=== PATIENT | female | born 1990 | race Caucasian/White ===

== ENCOUNTER → 2024-06-27 07:26 | Outpatient (CLI) | payer OTHER, SELFPAY ==
--- NOTE | 2024-06-27 07:27 | DI.US.S_ITS ---
PROCEDURE: US PELVIC COMPLETE INDICATIONS: BLOATING, DUB X 7 MOS TECHNIQUE: Real-time scanning was performed of the pelvic organs, with image documentation. Additional endovaginal scanning was necessary due to incomplete visualization of the adnexal and endometrial structures by transabdominal scanning. COMPARISON: None. FINDINGS: Uterus: Uterus is anteverted and normal in size at 4.4 x 6.3 x 9.5 cm. The myometrium is homogeneous. The endometrium measures 10.4 mm combined thickness. There is mild heterogeneity of the endometrial lining. Ovaries: The right ovary measures 2.5 x 1.1 x 1.9 cm, with a calculated ovarian volume of 2.7 cc. The left ovary measures 6.0 x 3.3 x 5.0 cm, with a calculated ovarian volume of 49.5 cc. This ovary is enlarged by presence of a 4.8 x 3.1 x 3.5 cm simple cyst and a complex cyst measuring 1.9 x 1.4 x 0.9 cm containing low level internal echoes. The ovaries otherwise have a normal sonographic appearance. Less than 12 follicles can be seen in each ovary. No adnexal masses are seen. Other: No pathologic free abdominal or pelvic fluid. IMPRESSION: Mild heterogeneity of the endometrial lining which is normal in thickness considering young age. Asymmetric size of the left ovary predominantly due to a large simple cyst measuring up to 4.8 cm. There is also a much smaller mildly complex cyst containing low level internal echoes at the left ovary which measures only 1.9 cm in maximal dimension. Follow-up pelvic ultrasound in 6-8 weeks is recommended to assess for resolution of these findings.. We strive to produce accurate, complete, and clear reports of imaging services. To assist us in improving patient care, this report was composed using standard report templates and voice recognition software. Therefore, it may contain abnormal punctuation, insertions and/or omissions. Occasional wrong-word or sound-alike substitutions may occur. Though we review the report and make efforts to correct it, we do recommend that the report be read carefully in proper context to recognize any text inaccuracies. Dictated by: Tavares Grover M.D. on 06/27/2024 at 11:32 Approved by: Tavares Grover M.D. on 06/27/2024 at 11:36
[2024-06-27 17:59] LABS: Follicle Stimulating Hormone 2.81 mIU/mL
[2024-06-30 21:06] LABS: Estrogen 229 pg/mL (.)
[2024-07-08 06:40] LABS: % Free Progesterone 2.5 % (.); Free Progesterone 28 ng/dL (.); Progesterone, Serum 1110 ng/dL (.)
== END ==
PROVIDERS: PCP Family Medicine; Referring Provider Family Medicine; Visit Provider Family Medicine
DX: N92.6 Irregular menstruation, unspecified (principal); N83.292 Other ovarian cyst, left side
CPT/HCPCS: 36415; 76830; 76856; 82672; 83001; 83002; 84144; 84999

== ENCOUNTER → 2024-06-29 12:15 | Outpatient (CLI) | payer OTHER, SELFPAY ==
[2024-06-29 13:38] LABS: Influenza A - CEPHEID Flu A NEGATIVE (NEGATIVE); Influenza B - CEPHEID Flu B NEGATIVE (NEGATIVE); Respiratory Syncytial Virus Negative (Negative)
[2024-06-29 13:43] LABS: COVID-19 CEPHEID 4-PLEX PCR Negative (Negative)
== END ==
PROVIDERS: PCP Family Medicine; Visit Provider Registered Nurse
DX: R42 Dizziness and giddiness (principal)
CPT/HCPCS: 0241U

== ENCOUNTER → 2024-07-05 15:37 | Outpatient (CLI) | payer OTHER, SELFPAY ==
[2024-07-05 17:35] LABS: Hemoglobin A1C% w Est Avg Glu 4.6 % (4.0-6.0)
[2024-07-05 18:01] LABS: Free T4, Direct Thyroxine 1.16 ng/dL (0.78-2.19)
[2024-07-05 18:15] LABS: Cancer Antigen 125 13.8 U/mL (0-35); Carcinoembryonic Antigen 1.4 ng/mL (0.1-3.0); Thyroid Stimulating Hormone 0.593 uIU/mL (0.47-4.68)
[2024-07-07 06:40] LABS: Alpha Fetoprotein 1.8 ng/mL (0.0-6.4)
[2024-07-08 09:40] LABS: Human Epididymis Prot 4 35.2 pmol/L (0.0-61.2)
[2024-07-08 12:38] LABS: Inhibin B 86.1 pg/mL (.)
== END ==
PROVIDERS: PCP Family Medicine; Referring Provider Obstetrics & Gynecology; Visit Provider Obstetrics & Gynecology
DX: D49.59 Neoplasm of unspecified behavior of other genitourinary organ (principal); N93.9 Abnormal uterine and vaginal bleeding, unspecified
CPT/HCPCS: 36415; 82105; 82378; 83036; 83520; 84439; 84443; 86304; 86305

== ENCOUNTER → 2024-09-03 09:06 | Outpatient (CLI) | payer OTHER, SELFPAY ==
[2024-09-03 11:07] LABS: Thyroid Stimulating Hormone 0.582 uIU/mL (0.47-4.68)
[2024-09-03 11:11] LABS: Progesterone, Total 1.23 ng/mL
== END ==
PROVIDERS: PCP Family Medicine; Referring Provider Obstetrics & Gynecology; Visit Provider Obstetrics & Gynecology
DX: R53.83 Other fatigue (principal); R42 Dizziness and giddiness
CPT/HCPCS: 36415; 84144; 84439; 84443

== ENCOUNTER → 2024-10-10 08:09 | Outpatient (CLI) | payer OTHER, SELFPAY ==
[2024-10-10 09:01] LABS: Add Manual Diff / Slide Review NO; Basophils Absolute Auto 0 /uL (0-100); Basophils Percent Auto 0.8 % (0-2); Eosinophils Absolute Auto 100 /uL (0-450); Eosinophils Percent Auto 1.7 % (2-4); Hematocrit 41.3 % (36-46); Lymphocytes Absolute Auto 1000 /uL (1100-4500); Mean Corpuscular HGB Conc 33.8 % (30-36); Mean Corpuscular Hemoglobin 29.7 PG (26-34); Mean Corpuscular Volume 87.7 fL (80-100); Monocytes Absolute Auto 300 /uL (0-900); Monocytes Percent Auto 6.8 % (3-14); Neutrophils Absolute Auto 3200 /uL (1500-7000); Neutrophils Percent Auto 69.7 % (50-75); Platelet Count 186 X10^3/uL (150-400); Red Blood Cell Count 4.71 X10^6/uL (4.0-5.2); Red Cell Distribution Width 13.9 % (11.6-14.8); White Blood Cell Count 4.6 X10^3/uL (4.5-11.0)
[2024-10-10 09:26] LABS: Alanine Aminotransferase 19 IU/L (<35); Albumin 4.5 g/dL (3.5-5.0); Albumin Globulin Ratio 1.8 (1.0-2.8); Alkaline Phosphatase 42 U/L (38-126); Aspartate Aminotransferase 25 IU/L (14-36); BUN Creatinine Ratio 17.8 (6-22); Bilirubin Total 0.6 mg/dL (0.2-1.3); Blood Urea Nitrogen 18 mg/dL (7-17); Calcium 9.5 mg/dL (8.4-10.2); Carbon Dioxide 25 mmol/L (22-32); Chloride 103 mmol/L (98-107); Estimated Glomerular Filt Rate > 60 mL/min (>60); Globulin 2.5 g/dL (1.7-4.1); Glucose 86 mg/dL (70-100); HEMOLYSIS < 15 (0-50); Potassium 4.8 mmol/L (3.4-5.1); Sodium 135 mmol/L (137-145)
[2024-10-10 10:00] LABS: Ferritin 17 ng/mL (6-137)
[2024-10-14 09:48] LABS: Iron 157 ug/dL (37-170)
== END ==
LOC: LAB 08:10
PROVIDERS: PCP Family Medicine; Referring Provider Family Medicine; Visit Provider Family Medicine
DX: F32.1 Major depressive disorder, single episode, moderate (principal); R53.83 Other fatigue
CPT/HCPCS: 36415; 80053; 82728; 83540; 85025